=== PATIENT | female | born 2000 ===

== ENCOUNTER 2025-07-23 15:05 | Emergency (ER) | payer OTHER ==
[2025-07-23] MEDS ORDERED: SODIUM CHLORIDE 0.9% 1,000 ML IV ONE (15:30)
[2025-07-23] MEDS ORDERED: Metoclopramide Hydrochloride 10 MG/2 ML VIAL IV ONE (15:30)
[2025-07-23] MEDS ORDERED: diphenhydrAMINE hydrochloride 50 MG/ML VIAL IV ONE (15:35)
[2025-07-23] MEDS ORDERED: ACETAMINOPHEN 325 MG TAB PO ONE (15:35)
[2025-07-23 15:55] LABS: BASO # 0.0 10*3/uL (0.0-0.1); BASO % 0.2 % (0.0-1.0); EOS # 0.0 10*3/uL (0.0-0.4); EOS % 0.1 % (1.0-4.0); MEAN CELL VOLUME 85.8 fl (81.0-99.0); MEAN CORPUSCULAR HGB 28.4 pg (27.0-31.0); MEAN PLATELET VOLUME 10.1 fl (9.6-12.3); MONO # 0.7 10*3/uL (0.1-1.0); MONO % 8.1 % (3.0-9.0); NEUT # 6.5 10*3/uL (2.3-7.9); NEUT % 74.5 % (47.0-73.0); NUCLEATED RED BLOOD CELL 0.0 % (0.0-0.0); NUCLEATED RED BLOOD CELL 0.0 10*3/uL (0.0-0.0); PLATELET COUNT AUTOMATED 235 10*3/uL (130-400); RED CELL DISTRI WIDTH 12.8 % (0-14.5)
[2025-07-23 16:40] LABS: BUN 6 mg/dl (9-23)
[2025-07-23 17:08] LABS: BETA-HCG, QUANT 114799.0 mIU/mL (3-10)
[2025-07-23 18:37] LABS: BILIRUBIN Negative (Negative); BLOOD Negative (Negative); CLARITY Clear (Clear); COLOR Yellow (Yellow); KETONE 2+ (Negative); LEUKO ESTERASE Negative (Negative); NITRITE Negative (Negative); PH 7.0 (4.5-8.0); SPECIFIC GRAVITY 1.015 (1.001-1.030); UROBILINOGEN 1.0 E.U./dl (0.0-1.0)
[2025-07-23 18:50] LABS: BACTERIA TRACE
[2025-07-23] MEDS ORDERED: REGLAN10 M1 PO (19:07)
[2025-07-23] MEDS ORDERED: AMOX-CLAV 875-1 EACH PO (19:07)
[2025-07-24] MEDS ORDERED: CLASSIC PRENAT1 EACH PO (12:42)
[2025-07-24] MEDS ORDERED: CETIRIZINE10 MG PO (13:44)
[2025-07-24] MEDS ORDERED: PROTONIX40 MG PO (13:44)
[2025-07-24] MEDS ORDERED: ANUSOL-HC25 MG R (13:44)
[2025-07-24] MEDS ORDERED: Phenergan25 MG PO (14:50)
== END 2025-07-23 19:15 | disposition home or self-care (01) ==
LOC: ED 15:05
PROVIDERS: Internal Medicine
DX: O23.91 Unspecified genitourinary tract infection in pregnancy, first trimester (principal); B96.89 Other specified bacterial agents as the cause of diseases classified elsewhere; O21.8 Other vomiting complicating pregnancy; R51.9 Headache, unspecified; H57.89 Other specified disorders of eye and adnexa; Z3A.08 8 weeks gestation of pregnancy

== ENCOUNTER 2025-07-24 12:30 | Emergency (ER) | payer OTHER ==
[~2025-07-24] VITALS: Ht 175.2 cm; Wt 140.6 kg
[~2025-07-24 12:30] MED LIST: AMOX-CLAV 875-1 EACH PO; REGLAN10 M1 PO
[2025-07-24] MEDS ORDERED: CLASSIC PRENAT1 EACH PO (12:42)
[2025-07-24] MEDS ORDERED: SODIUM CHLORIDE 0.9% 1,000 ML IV ONE (12:55)
[2025-07-24] MEDS ORDERED: ACETAMINOPHEN 100 ML IV ONE (13:00)
[2025-07-24] MEDS ORDERED: Promethazine Hydrochloride 25 MG/ML VIAL IM ONE (13:00)
[2025-07-24 13:11] LABS: BASO # 0.0 10*3/uL (0.0-0.1); BASO % 0.3 % (0.0-1.0); EOS # 0.0 10*3/uL (0.0-0.4); EOS % 0.1 % (1.0-4.0); MEAN CELL VOLUME 87.1 fl (81.0-99.0); MEAN CORPUSCULAR HGB 28.6 pg (27.0-31.0); MEAN PLATELET VOLUME 10.1 fl (9.6-12.3); MONO # 0.9 10*3/uL (0.1-1.0); MONO % 12.0 % (3.0-9.0); NEUT # 4.6 10*3/uL (2.3-7.9); NEUT % 61.8 % (47.0-73.0); NUCLEATED RED BLOOD CELL 0.0 % (0.0-0.0); NUCLEATED RED BLOOD CELL 0.0 10*3/uL (0.0-0.0); PLATELET COUNT AUTOMATED 242 10*3/uL (130-400); RED CELL DISTRI WIDTH 12.9 % (0-14.5)
[2025-07-24 13:32] LABS: SGPT/ALT 25 U/L (5-49)
[2025-07-24 13:34] LABS: BUN < 5 mg/dl (9-23)
[2025-07-24] MEDS ORDERED: CETIRIZINE10 MG PO (13:44)
[2025-07-24] MEDS ORDERED: ANUSOL-HC25 MG R (13:44)
[2025-07-24] MEDS ORDERED: PROTONIX40 MG PO (13:44)
[2025-07-24 13:49] LABS: BILIRUBIN Negative (Negative); BLOOD Negative (Negative); CLARITY Cloudy (Clear); COLOR Yellow (Yellow); KETONE 2+ (Negative); LEUKO ESTERASE Negative (Negative); NITRITE Negative (Negative); PH 6.5 (4.5-8.0); SPECIFIC GRAVITY >= 1.030 (1.001-1.030); UROBILINOGEN 1.0 E.U./dl (0.0-1.0)
[2025-07-24 14:22] LABS: BACTERIA 1+; EPITHELIAL CELLS 21-30; MUCOUS TRACE
[2025-07-24 14:23] LABS: RBC 0-2 rbc/hpf (0-2)
[2025-07-24] MEDS ORDERED: Phenergan25 MG PO (14:50)
== END 2025-07-24 14:59 | disposition home or self-care (01) ==
LOC: ED 12:30
PROVIDERS: Nurse Practitioner Family
DX: O21.8 Other vomiting complicating pregnancy (principal); O29.41 Spinal and epidural anesthesia induced headache during pregnancy, first trimester; Z20.822 Contact with and (suspected) exposure to COVID-19; Z3A.08 8 weeks gestation of pregnancy